=== PATIENT | female | born 1950 | race Two or more races ===

== ENCOUNTER 2024-12-30 16:28 | Emergency (ER) | payer OTHER, MEDICAID, SELFPAY ==
[2024-12-30 16:44] VITALS: BP 146/81; PULSE 70; RESP 18; TEMP 36.6; O2SAT 98; BMI 31.2
--- NOTE | 2024-12-30 16:47 | XR_ITS ---
Examination: CT brain head without contrast. 2-D sagittal coronal reconstructions Date and time of exam:December 30, 2024 1736 hours INDICATIONS: Headaches and earaches beginning today CTDI: vol (mGy):48 DLP: (mGycm):977 Technique: Multiple CT axial sections of the brain have been obtained, 5 mm slice thickness. Contrast has not been administered. 2-D sagittal, coronal reconstructions have been obtained Low dose protocols were performed. One or more of the following dose reduction techniques were used; automated exposure control, adjustment of the mA and/or KV according to patient size, use of iterative reconstruction technique. Findings: No significant ventricular enlargement. Intra-axial or extra-axial hemorrhage density is not seen. No mass effect or midline shift Basal cisterns are not remarkable. Fourth ventricle is midline. Cranial vault intact. Impression: Negative for acute hemorrhage, mass effect or midline shift Negative for mastoiditis Negative for otitis media
--- NOTE | 2024-12-30 16:47 | PD.EDRME ---
Rapid Medical Screening Exam RME Arrival date/time: 12/30/24 16:28 74-year-old female presents to the Emergency Department today for complaints of headache Chief Complaint: Ear Time Seen by Provider: 12/30/24 16:33 Vital signs: Vital Signs Temperature 98 F 12/30/24 16:44 Pulse Rate 70 12/30/24 16:44 Respiratory Rate 18 12/30/24 16:44 Blood Pressure 146/81 H 12/30/24 16:44 Pulse Oximetry (%) 98 12/30/24 16:44 Oxygen Delivery Method Room Air 12/30/24 16:44
[2024-12-30 17:09] LABS: Basophils % (Auto) 1 % (0-2.5); Eosinophils # (Auto) 0.1 Thou/mm3 (0.0-0.5); Eosinophils % (Auto) 2 % (0-10); Hematocrit 39.6 % (36.0-46.0); Hemoglobin 13.5 g/dL (12.0-16.0); Immature Granulocytes % (Auto) 0 % (0-0); Immature Granulocytes Auto 0.01 Thou/mm3 (0.00-0.00); Lymphocytes # (Auto) 3.1 Thou/mm3 (1.0-4.8); Lymphocytes % (Auto) 45 % (10-50); Mean Corpuscular HGB Conc 34.1 g/dl (31.0-37.0); Mean Corpuscular Hemoglobin 31.1 pg (25.0-35.0); Mean Corpuscular Volume 91 fL (80-100); Monocytes # (Auto) 0.2 Thou/mm3 (0.0-0.8); Monocytes % (Auto) 3 % (0-12); Neutrophils # (Auto) 3.4 Thou/mm3 (1.8-7.7); Neutrophils % (Auto) 50 % (37-80); Nucleated Red Blood Cell % 0 /100 WBC (0); Platelet Count 214 Thou/mm3 (140-440); RDW Standard Deviation 41.1 fL (36.4-46.3); Red Blood Count 4.34 Miln/mm3 (4.00-5.20); White Blood Count 6.9 Thou/mm3 (3.6-11.0)
[2024-12-30 17:30] LABS: Alanine Aminotransferase 35 U/L (10-49); Albumin, Serum 4.7 gm/dL (3.4-4.8); Alkaline Phosphatase 78 U/L (46-116); Anion Gap 8 (7-16); Aspartate Amino Transferase 31 U/L (0-34); BUN/Creatinine Ratio 16 Ratio (12-20); Bilirubin,Total 0.6 mg/dL (0.3-1.2); Blood Urea Nitrogen 13 mg/dL (9-23); Calcium 9.5 mg/dL (8.3-10.6); Calcium (Corrected) 9.5 mg/dL (8.5-10.1); Carbon Dioxide 29.6 mMol/L (20.0-31.0); Chloride 102 mMol/L (98-107); Creatinine (Component) 0.8 mg/dL (0.6-1.3); Estimated Creatinine Clearance 56.5 mL/min (>60); Globulin 2.3 gm/dL (2.3-3.5); Glucose 147 mg/dL (74-106); Osmolality,Calculated 282 (275-295); Potassium 4.3 mMol/L (3.4-5.1); Sodium 140 mMol/L (136-145); eGFR > 60 See Note
--- NOTE | 2024-12-30 19:53 | PD.EDEAR ---
ED Ear RME/HPI General Chief complaint: Ear Stated complaint: C/O PAIN IN EARS LONGER THAN 1 MONTH Time Seen by Provider: 12/30/24 16:33 Arrival date/time: 12/30/24 16:28 RME / HPI RME / HPI Narrative: 12/30/24 16:28 74-year-old female presents to the Emergency Department today for complaints of headache ----- This section includes all my notes and documentations, including HPI, PE, and ED course. Lauro Gray MD HPI: 74yo female here with headache, including both ears, for over a month. Patient has been taking Tylenol without relief. No fever, chills, nausea, vomiting, weakness, dizziness, lightheadedness. No other complaints. ROS: All negative except as documented in HPI. Physical Exam: General: Alert and oriented. No acute distress when remaining still. High BP noted. Eyes: Conjunctivae and lids clear. PERRL. EOMI. ENT: No nasal congestion. Pharynx normal. Tympanic membranes normal bilaterally. Neck: Supple. Heart: RRR. Lungs: No respiratory distress. Good air movement. No rhonchi, wheezing, rales. Skin: Warm and dry. Neuro: Alert and oriented X 3. Cranial nerves II to XII grossly normal. No peripheral motor deficits. I reviewed all diagnostic test results. My review of the CT head report is NAD. Blood tests are unremarkable. At this point, diagnoses include hypertension and headache. Treatment here included Clonidine and Tylenol with Codeine. She felt much better. Recommended more outpatient care. Based on my best medical judgment, made decision no further evaluation or treatment indicated at this time. Patient understands and agrees to the discharge instructions customized and printed, see below. Discharge Instructions from Dr. Gray printed for you: 1. After evaluation, there is no life-threatening condition. Such as stroke or brain tumor. 2. Your high BP is causing your headache. 3. Take clonidine as prescribed to lower your BP. You will live longer with lower BP. 4. Tylenol with codeine for severe headache. Take one pill at a time. If you need more help, take two pills at a time. 5. See a private doctor on 01/01/2025 for recheck and further care. Ask to review all test results and official radiology reports, to make sure you receive all necessary follow-ups and monitoring. 6. Seek immediate medical care with worsening or with any concerns. Lauro Gray MD Related Data Home Medications ?Medication ?Instructions ?Recorded ?Confirmed cyclobenzaprine 5 mg tablet 5 mg PO TID PRN Pain 12/20/21 12/21/21 pravastatin 20 mg tablet 20 mg PO QDAY 12/20/21 12/21/21 Previous Rx's ?Medication ?Instructions ?Recorded docusate sodium 100 mg capsule 100 mg PO BID #40 caps 12/21/21 (Colace) hydrocodone 5 mg-acetaminophen 325 1 tab PO Q6H PRN pain (scale score 12/21/21 mg tablet 7-10) #20 tabs ibuprofen 600 mg tablet 600 mg PO Q8H PRN pain (scale 12/21/21 score 4-6) #15 tabs acetaminophen 300 mg-codeine 30 mg 2 tab PO Q8H PRN pain #20 tabs 12/30/24 tablet clonidine HCl 0.1 mg tablet 0.1 mg PO BID #60 tabs 12/30/24 Allergies Allergy/AdvReac Type Severity Reaction Status Date / Time Penicillins Allergy Swelling Verified 12/30/24 16:34 of Lip/Tongue/Throat Review of Systems Review of Systems Systems Reviewed: All systems reviewed, normal except as documented Past Medical History Past Medical History NEUROLOGIC: Negative Neurological Disorders or Seizures CARDIAC: Positive Cardiac Disorders and Hypercholesterolemia (TAKES MED); Negative Congestive Heart Failure, Edema or Cellulitis RESPIRATORY: Negative Chronic Obstructive Pulmonary Disease (COPD) GASTROINTESTINAL: Positive Gastrointestinal Disorders and Gall Bladder Disease (FOR THIS PROC); Negative Hepatitis GENITOURINARY: Negative Genitourinary Disorders or Renal Disease REPRODUCTIVE: Positive Previous Pregnancies (X5) MUSCULOSKELETAL: Negative Musculoskeletal Disorders ENDOCRINE: Positive Endocrine Disorders (PRE DIABETES STOP MED 2017); Negative Diabetes Mellitus Type 1 or Diabetes Mellitus Type 2 (PREDIABETES) HEMATOLOGIC: Negative Blood Disorders OTHER HISTORY: Negative Hospitalization, Autoimmune Disease, Shingles, Falls, Blood Transfusions, Blood Transfusion Reaction, Anesthesia Reactions, Chicken Pox, Measles, Mumps or Cancer Family History FAMILY HISTORY: Negative Family Psychiatric Problems, Family Respiratory Disorders, Family Cardiac Disorders (UNKNOWN), Family Gastrointestinal Problems, Family Cancer, Family Surgery or Family Anesthesia Reaction Surgical History SURGICAL: Positive Hysterectomy (BRENDA); Negative Cardiac Surgery or Pacemaker Social History SMOKING STATUS: Never smoker ED Exam Narrative Physical exam: As noted in HPI. Course Quality Measures none Orders Category Date Time Status CT head/brain wo con Stat Exams 12/30/24 16:47 Completed CBC Stat Lab 12/30/24 16:53 Completed CMP [Comprehensive Metabolic Panel] Stat Lab 12/30/24 16:53 Completed ACETAMINOPHEN w/COD 300-30 [Tylenol w/Cod #3] Med 12/30/24 19:53 Discontinued 1 tab PO X1 ONE cloNIDine HCL [Catapres] Med 12/30/24 19:53 Discontinued 0.1 mg PO X1 ONE Vital Signs Vital signs: Vital Signs Temperature 98 F 12/30/24 16:44 Pulse Rate 70 12/30/24 16:44 Respiratory Rate 18 12/30/24 16:44 Blood Pressure 146/81 H 12/30/24 16:44 Pulse Oximetry (%) 98 12/30/24 16:44 Oxygen Delivery Method Room Air 12/30/24 16:44 Ear MDM Narrative MDM Narrative:: 74yo female here with headache, including both ears, for over a month. Patient has been taking Tylenol without relief. No fever, chills, nausea, vomiting, weakness, dizziness, lightheadedness. No other complaints. Patient data External records reviewed:: [facility] previous records (Per chart review, patient has no previous ED visits to this facility.) Clinical information provided by:: patient Social determinants that could affect healthcare access:: none Patient has the following chronic illnesses:: none How is presenting disease/condition affected by chronic disease/condition?: no chronic disease Evaluation data The following diagnostics were reviewed and interpreted by me:: lab results and radiology exam(s) Lab and/or radiology exams considered but not ordered:: none Interpretation Summary: My review of the CT head report is NAD. Blood tests are unremarkable. Medications / Prescriptions Medications or Prescriptions considered but not ordered:: none Medication administrations:: Medication Administration History Discontinued Medications Acetaminophen/Codeine Phosphate (Acetaminophen W/Cod 300-30 Tablet) 1 tab PO X1 ONE Stop: 12/30/24 19:54 Clonidine (Clonidine Hcl 0.1 Mg Tablet) 0.1 mg PO X1 ONE Stop: 12/30/24 19:54 Clonidine, Tylenol with Codeine Consultations Consultation(s) initiated? (list below): No Diagnosis Ear Differential Diagnosis: otitis externa, otitis media, ruptured TM and cerumen impaction Most likely diagnosis given after review of the tests above:: Hypertension, Headache Admission Indicated Admission indicated?: not indicated Explain why admission is indicated or not indicated:: With no condition needing emergent intervention, there was no indication for admission. Admission Request Was there a request for admission?: No Disposition Plan Disposition Plan: Discharge Discharge Attestation Discharge Attestation: The patient and all family members were given an opportunity to ask questions and understood the discharge instructions. Discharge instructions specifically effects, indications for sooner follow up or return to the emergency department, and the expected course of current diagnosis. Patient condition: Stable Medical Decision Making Lab Data 12/30/24 16:53 12/30/24 16:53 Labs: Lab Results 12/30/24 Range/Units 16:53 WBC 6.9 (3.6-11.0) Thou/mm3 RBC 4.34 (4.00-5.20) Miln/mm3 Hgb 13.5 (12.0-16.0) g/dL Hct 39.6 (36.0-46.0) % MCV 91 (80-100) fL MCH 31.1 (25.0-35.0) pg MCHC 34.1 (31.0-37.0) g/dl RDW Std Deviation 41.1 (36.4-46.3) fL Plt Count 214 (140-440) Thou/mm3 Neut % (Auto) 50 (37-80) % Lymph % (Auto) 45 (10-50) % [place] % (Auto) 3 (0-12) % Eos % (Auto) 2 (0-10) % Baso % (Auto) 1 (0-2.5) % Neut # (Auto) 3.4 (1.8-7.7) Thou/mm3 Lymph # (Auto) 3.1 (1.0-4.8) Thou/mm3 [place] # (Auto) 0.2 (0.0-0.8) Thou/mm3 Eos # (Auto) 0.1 (0.0-0.5) Thou/mm3 Baso # (Auto) 0.0 (0.0-0.2) Thou/mm3 Immature Gran # (Auto) 0.01 H (0.00-0.00) Thou/mm3 Absolute Nucleated RBC 0.00 (0.00-0.00) Thou/mm3 Immature Gran % 0 (0-0) % Nucleated RBC % 0 (0) /100 WBC Sodium 140 (136-145) mMol/L Potassium 4.3 (3.4-5.1) mMol/L Chloride 102 (98-107) mMol/L Carbon Dioxide 29.6 (20.0-31.0) mMol/L Anion Gap 8 (7-16) BUN 13 (9-23) mg/dL Creatinine 0.8 (0.6-1.3) mg/dL Estim Creat Clear Calc 56.5 L (>60) mL/min eGFR > 60 (60 - ) See Note BUN/Creatinine Ratio 16 (12-20) Ratio Glucose 147 H (74-106) mg/dL Calculated Osmolality 282 (275-295) Calcium 9.5 (8.3-10.6) mg/dL Corrected Calcium 9.5 (8.5-10.1) mg/dL Total Bilirubin 0.6 (0.3-1.2) mg/dL AST 31 (0-34) U/L ALT 35 (10-49) U/L Alkaline Phosphatase 78 (46-116) U/L Total Protein 7.0 (5.7-8.2) gm/dL Albumin 4.7 (3.4-4.8) gm/dL Globulin 2.3 (2.3-3.5) gm/dL Albumin/Globulin Ratio 2.0 (1.2-2.2) Discharge Plan Plan Patient Disposition: HOME (Self Care) Prescriptions/Referrals Prescriptions/Med Rec: New clonidine HCl 0.1 mg tablet 0.1 mg PO BID Qty: 60 0RF acetaminophen-codeine 300-30 mg tablet 2 tab PO Q8H MDD 6 PRN (Reason: pain) Qty: 20 0RF No Action pravastatin 20 mg Tablet 20 mg PO QDAY cyclobenzaprine 5 mg Tablet 5 mg PO TID PRN (Reason: Pain) hydrocodone-acetaminophen 5-325 mg tablet 1 tab PO Q6H MDD 4 PRN (Reason: pain (scale score 7-10)) Qty: 20 0RF docusate sodium [Colace] 100 mg capsule 100 mg PO BID Qty: 40 0RF ibuprofen 600 mg tablet 600 mg PO Q8H PRN (Reason: pain (scale score 4-6)) Qty: 15 0RF Referrals: No Primary/Family,Physician [Primary Care Provider] - In 1 week Problem List Clinical Impression: Hypertension, Headache Patient/Caregiver Discharge Instructions Discharge Activity: activity as tolerated Education Materials: ED Hypertension, New (Begin Treatment) Additional Instructions: Discharge Instructions from Dr. Gray printed for you: 1. After evaluation, there is no life-threatening condition. Such as stroke or brain tumor. 2. Your high BP is causing your headache. 3. Take clonidine as prescribed to lower your BP. You will live longer with lower BP. 4. Tylenol with codeine for severe headache. Take one pill at a time. If you need more help, take two pills at a time. 5. See a private doctor on 01/01/2025 for recheck and further care. Ask to review all test results and official radiology reports, to make sure you receive all necessary follow-ups and monitoring. 6. Seek immediate medical care with worsening or with any concerns. Instrucciones de nicole del Dr. Gray impresas para usted: 1. Tras la evaluaci?n, no se observa ninguna afecci?n potencialmente mortal, scooter un derrame cerebral o un tumor cerebral. 2. [place] presi?n arterial nicole le est? causando dolor de serg. 3. [place] clonidina seg?n lo prescrito para bajar la presi?n arterial. Vivir? m?s tiempo con la presi?n arterial baja. 4. Tylenol con code?na para el dolor de serg intenso. [place] mike pastilla a la vez. Si necesita m?s ayuda, tome dos pastillas a la vez. 5. Consulte con un m?dico particular el 01/01/2025 para mike nueva revisi?n y atenci?n adicional. Solicite la revisi?n de todos los resultados de las pruebas y los informes radiol?gicos oficiales para asegurarse de recibir todos los controles y monitoreo necesarios. 6. [place] atenci?n m?dica inmediata si presenta empeoramiento o si tiene alguna inquietud. Print Language: Slovenian Stand Alone Forms: Nery Award Info., Patient Portal Info Letter
[2024-12-30 20:05] VITALS: BP 151/88; PULSE 77
[2024-12-30] MEDS: cloNIDine HCL 0.1 MG TABLET PO (20:05)
[2024-12-30] MEDS: ACETAMINOPHEN w/COD 300-30 TABLET 1 TAB PO (20:06)
[2024-12-30 20:07] VITALS: BP 151/88; PULSE 77; RESP 18; TEMP 36.5; O2SAT 99
== END 2024-12-30 20:12 | disposition home or self-care (01) ==
PROVIDERS: Nurse Practitioner Primary Care; Emergency Provider Emergency Medicine
DX: I10 Essential (primary) hypertension (principal); R51.9 Headache, unspecified
CPT/HCPCS: 36415; 70450; 80053; 85025; 99284; A9270